=== PATIENT | male | born 1965 | race African-American/Black ===

== ENCOUNTER → 2017-07-05 | Outpatient (CLI) | payer OTHER ==
[~2017-07-05] MED LIST: BENTYL 10 MG CA10 MG PO; DULCOLAX5 MG PO; MIRALAX255 GM PO; NEXIUM40 MG; NORCO 5-325 TA1 EACH PO
== END ==
LOC: ULTRA 10:39
DX: M79.604 Pain in right leg (principal); R60.0 Localized edema